=== PATIENT | female | born 1955 | race Caucasian/White ===

== ENCOUNTER → 2017-05-13 | Outpatient (CLI) | payer OTHER ==
--- NOTE | 2017-05-14 12:22 | MM ---
Reason for exam: screening (asymptomatic). Last mammogram was performed 1 year and 2 months ago. History: Patient is postmenopausal. Family history of breast cancer in mother at age 60. Physical Findings: A clinical breast exam by your physician is recommended on an annual basis and results should be correlated with mammographic findings. MG Screening Mammo w CAD Bilateral CC and MLO view(s) were taken. Prior study comparison: March 05, 2016, bilateral MG screening mammo w CAD. February 07, 2015, bilateral MG 3d diag mammo w/cad BRENDA. There are scattered fibroglandular densities. No suspicious abnormality. No significant changes when compared with prior studies. ASSESSMENT: Negative, BI-RAD 1 RECOMMENDATION: Routine screening mammogram of both breasts in 1 year.
== END | disposition home or self-care (01) ==
LOC: RADMAMWWP 07:39
PROVIDERS: ATTEND Family Medicine
DX: Z12.31 Encounter for screening mammogram for malignant neoplasm of breast (principal)
CPT/HCPCS: 77067

== ENCOUNTER → 2018-07-24 | Outpatient (CLI) | payer OTHER ==
--- NOTE | 2018-07-27 10:54 | MM ---
Reason for exam: screening (asymptomatic). Last mammogram was performed 1 year and 2 months ago. History: Patient is postmenopausal. Family history of breast cancer in mother at age 60. Physical Findings: A clinical breast exam by your physician is recommended on an annual basis and results should be correlated with mammographic findings. MG Screening Mammo w CAD Bilateral CC and MLO view(s) were taken. Prior study comparison: May 13, 2017, bilateral MG screening mammo w CAD. March 05, 2016, bilateral MG screening mammo w CAD. The breast tissue is almost entirely fat. No significant changes when compared with prior studies. ASSESSMENT: Benign, BI-RAD 2 RECOMMENDATION: Routine screening mammogram of both breasts in 1 year.
== END | disposition home or self-care (01) ==
LOC: RADMAMWWP 08:00
PROVIDERS: ATTEND Family Medicine
DX: Z12.31 Encounter for screening mammogram for malignant neoplasm of breast (principal); Z80.3 Family history of malignant neoplasm of breast
CPT/HCPCS: 77067

== ENCOUNTER → 2021-12-26 | Outpatient (CLI) | payer MEDICARE ==
--- NOTE | 2021-12-27 08:48 | MM ---
Reason for Exam: Screening (asymptomatic). Last mammogram was performed 3 year(s) and 5 month(s) ago. Patient History: Menarche at age 12. First Full-Term at age 16. Left ovary removed at age 39. Postmenopausal. Mother had breast cancer, age 60. Risk Values: Delma 5 year model risk: 3.1%. NCI Lifetime model risk: 10.5%. Prior Study Comparison: 03/05/2016 Bilateral Screening Mammogram, [facility]. 05/13/2017 Bilateral Screening Mammogram, [facility]. 07/24/2018 Bilateral Screening Mammogram, [facility]. Tissue Density: The breast tissue is almost entirely fat. Findings: Analyzed By CAD. There is no suspicious group of microcalcifications or new suspicious mass in either breast. No significant change from prior exams. Overall Assessment: Benign, BI-RAD 2 Management: Screening Mammogram of both breasts in 1 year. A clinical breast exam by your physician is recommended on an annual basis and results should be correlated with mammographic findings. Electronically signed and approved by: Souleymane Choi D.O.
== END | disposition home or self-care (01) ==
LOC: RADMAMWWP 11:18
PROVIDERS: ATTEND Family Medicine
DX: Z12.31 Encounter for screening mammogram for malignant neoplasm of breast (principal); Z80.3 Family history of malignant neoplasm of breast
CPT/HCPCS: 77063; 77067

== ENCOUNTER → 2024-01-19 | Outpatient (CLI) | payer MEDICARE ==
--- NOTE | 2024-01-19 10:30 | XR ---
EXAMINATION TYPE: XR chest 2V DATE OF EXAM: 01/19/2024 10:25 AM COMPARISON: None TECHNIQUE: XR chest 2V Frontal and lateral views of the chest. CLINICAL INDICATION:Female, 68 years old with history of COPD POST COVID; FINDINGS: Lungs/Pleura: There is no evidence of pleural effusion, focal consolidation, or pneumothorax. Pulmonary vascularity: Unremarkable. Heart/mediastinum: Cardiomediastinal silhouette is unremarkable. Musculoskeletal: Multiple level degenerative disc disease changes seen throughout the spine. IMPRESSION: No acute cardiopulmonary disease/process. [facility], , 01/19/2024 10:27 AM
== END | disposition home or self-care (01) ==
LOC: RADXRMAIN 10:11
PROVIDERS: ATTEND Family Medicine
DX: J44.9 Chronic obstructive pulmonary disease, unspecified (principal)
CPT/HCPCS: 71046

== ENCOUNTER → 2024-04-06 | Outpatient (CLI) | payer MEDICARE ==
--- NOTE | 2024-04-06 15:24 | CTL ---
EXAMINATION TYPE: CT Low Dose Lung DATE OF EXAM: 04/06/2024 1:25 PM COMPARISON: None. SCREENING VISIT: Intial CT DIAGNOSTIC QUALITY: Satisfactory CLINICAL INDICATION: Female, 68 years old with history of Z12.2 ENCNTR SCREEN F17.210 NICOTINE INDEPE NDENCE, Personal hx of nicotine dependence 1ppd X 30 years current smoker, Lung cancer screening, His tory of tobacco use. TECHNIQUE: Low dose computed tomography scan was performed through the chest at 1 mm thick sections a nd reconstructed images in the coronal plane at 1 mm thick sections. Contrast used: mL of , (none if empty) Oral contrast used: (none if empty) CT DLP: 124.1 mGycm, Automated exposure control for dose reduction was used. CT CTDI: 4.0 mGy, Automated exposure control for dose reduction was used. FINDINGS: LUNG NODULES: None. LUNGS: COPD: Severity: None Fibrosis: Severity: None Lymph nodes: None Other findings: None RIGHT PLEURAL SPACE: Effusion: None Calcification: None Thickening: None Pneumothorax: None LEFT PLEURAL SPACE: Effusion: None Calcification: None Thickening: None Pneumothorax: None HEART: Other: Ascending thoracic aorta at the level the main pulmonary artery measures 3.3 cm. The main pul monary artery at the bifurcation measures2.3 cm. Heart Size: Normal Coronary calcification: Minimal Pericardial effusion: None OTHER FINDINGS: Upper abdomen: Normal Bony thorax: Normal Supraclavicular region: Normal IMPRESSION: 1. No suspicious changes for primary or metastatic neoplasm. FOLLOW UP CT CHEST RECOMMENDATION: Follow-up low-dose CT chest one year CT LUNG RAD: Lung-Rad 1 Negative [facility], , 04/06/2024 3:22 PM
== END | disposition home or self-care (01) ==
LOC: RADCTMAIN 11:01
PROVIDERS: ATTEND Family Medicine
DX: Z12.2 Encounter for screening for malignant neoplasm of respiratory organs (principal); F17.210 Nicotine dependence, cigarettes, uncomplicated
CPT/HCPCS: 71271

== ENCOUNTER → 2024-04-06 | Outpatient (CLI) | payer MEDICARE ==
[2024-04-06 12:34] LABS: African American GFR (CKD) >90 (>60 ml/min/1.73 sqM); Blood Urea Nitrogen 16 mg/dL (7-17); Non-African American GFR(CKD) 78 (>60 ml/min/1.73 sqM)
--- NOTE | 2024-04-06 15:20 | CT ---
EXAMINATION TYPE: CT abdomen pelvis w con DATE OF EXAM: 04/06/2024 1:21 PM COMPARISON: None. CLINICAL INDICATION: Female, 68 years old with history of R10.9 UNSPECIFIED ABDOMINAL PAIN, ABDOMINAL PAIN TECHNIQUE: Axial images were obtained from above the diaphragm to the pubic rami in the axial plane a t 5 mm thick sections. Reconstructed images are reviewed on the computer in the coronal plane. CONTRAST: 100 mL of Isovue 300. Study performed with Oral Contrast DLP: 1867.5 mGycm, Automated exposure control for dose reduction was used. FINDINGS: Limited CT sections are obtained the lung bases. The lung bases are clear. CT ABDOMEN: Liver: Normal Spleen: Normal Pancreas: Normal Adrenal glands: The adrenal glands are normal. Gallbladder: Normal Kidneys: No masses are evident. No hydronephrosis is present. No cysts are present. Delayed images were obtained through the kidneys, which remain unremarkable. Aorta: Normal Inferior vena cava: Normal. CT PELVIS: Loops of bowel within the abdomen and pelvis are normal. Mild fecal debris scattered throughout the colon. No dilated loops of colon are evident. Diverticular changes without acute diverticulitis or wi thin the sigmoid colon. There are loops of bowel which are incompletely distended or lack oral cont rast limiting their evaluation. Appendix: Normal as visualized. Urinary bladder: Normal. Genitourinary structures: Uterus is normal. Adnexa are normal. Osseous structures: No suspicious lytic or sclerotic lesions. IMPRESSION: 1. Diverticulosis without acute diverticulitis. [facility], , 04/06/2024 3:17 PM
== END | disposition home or self-care (01) ==
LOC: RADCTMAIN 10:52
PROVIDERS: ATTEND Family Medicine
DX: K57.90 Diverticulosis of intestine, part unspecified, without perforation or abscess without bleeding (principal)
CPT/HCPCS: 82565; 84520; 74177; 36415; Q9967

== ENCOUNTER → 2024-04-16 | Outpatient (CLI) | payer MEDICARE ==
--- NOTE | 2024-04-16 09:59 | US ---
EXAMINATION TYPE: US abdomen complete DATE OF EXAM: 04/16/2024 COMPARISON: CT 2024 CLINICAL INDICATION: Female, 68 years old with history of R10.11 RIGHT UPPER QUADRANT PAIN; RUQ pain. TECHNIQUE: Grayscale and color Doppler imaging of the abdomen was performed. FINDINGS: EXAM MEASUREMENTS: Liver Length: 16.2 cm Gallbladder Wall: 0.28 cm CBD: 0.43 cm, color Doppler imaging was utilized to isolate the common bile duct for measurement. Spleen: 8.6 cm Right Kidney: 12.0 x 5.2 x 4.4 cm Left Kidney: 10.6 x 5.1 x 5.8 cm [employer] NOTES: Exam is limited due to gas. Pancreas: *Not well seen. Appears hyperechoic. Liver: *Increased echogenicity and attenuation with very coarsened echotexture. Hypoechoic area se en adjacent to the gallbladder: 2.2 x 1.5 x 0.7 cm. Gallbladder: Appears anechoic Evidence for sonographic Holman's sign: No CBD: wnl Spleen: wnl Right Kidney: wnl, No hydronephrosis, calculi or masses seen Left Kidney: wnl, No hydronephrosis, calculi or masses seen Upper IVC: wnl Abd Aorta: Proximal segment appears ectatic. Distal segment and iliacs were obscured. The pancreas is poorly visualized and appears hyperechoic corresponding to some fatty infiltration on CT. The liver is diffusely echogenic with coarsened echotexture. There is a region of hypodensity ad jacent to the gallbladder. Gallbladder demonstrates no wall thickening, surrounding fluid or stones. Negative sonographic Holman sign. Common bile duct is within normal limits. The spleen is within norm al limits. No hydronephrosis, shadowing renal calculi or solid renal mass is identified. Upper IVC ap pears within normal limits. Ectatic appearance of the proximal abdominal aorta measuring up to 2.8 cm . IMPRESSION: 1. No ultrasound evidence for an acute process. 2. Hepatic steatosis with focal fatty sparing adjacent to the gallbladder. 3. Ectatic appearance of the proximal abdominal aorta measuring up to 2.8 cm. [facility], , 04/16/2024 9:57 AM
== END | disposition home or self-care (01) ==
LOC: RADUSWWP 08:47
PROVIDERS: ATTEND Family Medicine
DX: K76.0 Fatty (change of) liver, not elsewhere classified (principal); I77.811 Abdominal aortic ectasia
CPT/HCPCS: 76700